=== PATIENT | female | born 1940 ===

== ENCOUNTER 2017-11-28 16:59 | Emergency (ER) | payer OTHER ==
[~2017-11-28] VITALS: Ht 152.4 cm; Wt 64.4 kg
[~2017-11-28 16:59] MED LIST: CLONAZEPAM0.25 MG; CRESTOR20 MG; DICLOFENAC SODI50 MG PO; FENOFIBRATE150 MG; GLIPIZIDE5 MG; METFORMIN HCL500 MG; NAMENDA10 MG; NEURONTIN600 MG; NORFLEX100MG PO; TENORMIN25 MG; VOLTAREN100 GM
[2017-11-28] MEDS ORDERED: CRESTOR40 MG (17:11)
[2017-11-28] MEDS ORDERED: DICLOFENAC SODI75 MG (17:12)
[2017-11-28] MEDS ORDERED: EFFEXOR XR37.5 MG (17:13)
[2017-11-28] MEDS ORDERED: GLUCOPHAGE XR500 MG (17:13)
[2017-11-28] MEDS ORDERED: ANTIVERT (17:14)
[2017-11-28] MEDS ORDERED: [UNRECOGNIZED DRUG - OTHER] (17:15)
[2017-11-28] MEDS ORDERED: EXEDRINE (17:16)
[2017-11-28] MEDS ORDERED: HYDROCHLOROTH12.5 M1 (17:16)
== END 2017-11-28 19:29 | disposition home or self-care (01) ==
LOC: ER 16:59
DX: S20.212A Contusion of left front wall of thorax, initial encounter (principal); S40.012A Contusion of left shoulder, initial encounter; W18.09XA Striking against other object with subsequent fall, initial encounter; Y93.89 Activity, other specified; Y92.098 Other place in other non-institutional residence as the place of occurrence of the external cause; Y99.8 Other external cause status